=== PATIENT | female | born 1975 | race Two or more races ===

== ENCOUNTER 2021-01-31 10:30 | Inpatient (IN) | payer OTHER ==
[~2021-01-31] VITALS: Ht 167.6 cm; Wt 72.6 kg
[2021-01-31] MEDS ORDERED: RESTORIL15 MG PO (13:51)
[2021-01-31] MEDS ORDERED: ELAVIL PO (13:52)
[2021-01-31] MEDS ORDERED: CLONAZEPAM2 MG PO (13:52)
[2021-02-07] MEDS ORDERED: QUETIAPINE FUM100 MG (11:54)
[2021-02-07] MEDS ORDERED: TIZANIDINE HCL4 MG (11:54)
[2021-02-07] MEDS ORDERED: AMITRIPTYLINE H50 MG (11:54)
[2021-02-07] MEDS ORDERED: DULOXETINE HCL60 MG (11:54)
[2021-02-07] MEDS ORDERED: RISPERIDONE0.5 MG (11:54)
[2021-02-08] MEDS ORDERED: OXYC1TAB9 PO (07:08)
[2021-02-08] MEDS ORDERED: IBUPROFEN800 MG PO (07:08)
[2021-02-08] MEDS ORDERED: SIMETHICONE125 M1 PO (07:09)
[2021-02-08] MEDS ORDERED: KAOPECTATE240 MG PO (07:09)
== END 2021-02-08 13:06 | disposition home or self-care (01) | DRG 743 ==
LOC: OB/GYN 02-07 07:15 → O/R 02-07 07:15 → SURH 02-07 10:30 → OB/GYN 02-07 10:30
PROVIDERS: ADMIT Obstetrics & Gynecology Gynecology; ATTEND Obstetrics & Gynecology Gynecology
PROC: 0UB77ZZ Excision of Bilateral Fallopian Tubes, Via Natural or Artificial Opening (ICD-10-PCS; 2021-02-07)
PROC: 0UT9FZZ Resection of Uterus, Via Natural or Artificial Opening With Percutaneous Endoscopic Assistance (ICD-10-PCS; principal; 2021-02-07 10:45)
DX: D25.2 Subserosal leiomyoma of uterus (principal); N92.4 Excessive bleeding in the premenopausal period; N83.8 Other noninflammatory disorders of ovary, fallopian tube and broad ligament; F41.9 Anxiety disorder, unspecified

== ENCOUNTER 2023-08-07 07:36 | Outpatient (CLI) | payer OTHER ==
[~2023-08-07 07:36] MED LIST: AMITRIPTYLINE H50 MG; CLONAZEPAM2 MG PO; DULOXETINE HCL60 MG; ELAVIL PO; IBUPROFEN800 MG PO; KAOPECTATE240 MG PO; OXYC1TAB9 PO; QUETIAPINE FUM100 MG; RESTORIL15 MG PO; RISPERIDONE0.5 MG; SIMETHICONE125 M1 PO; TIZANIDINE HCL4 MG
== END 2023-08-07 08:03 | disposition home or self-care (01) ==
LOC: LAB 07:36
PROVIDERS: ATTEND Orthopaedic Surgery
DX: M85.9 Disorder of bone density and structure, unspecified (principal); E83.42 Hypomagnesemia; E56.1 Deficiency of vitamin K; M06.8A Other specified rheumatoid arthritis, other specified site; M10.9 Gout, unspecified

== ENCOUNTER 2023-08-15 13:29 | Outpatient (CLI) | payer OTHER | END 2023-08-15 13:38 | disposition home or self-care (01) | LOC: NUCLEAR 13:29 | PROVIDERS: ATTEND Orthopaedic Surgery | DX: M81.0 Age-related osteoporosis without current pathological fracture (principal) ==